=== PATIENT | male | born 1975 | race African-American/Black ===

== ENCOUNTER 2018-11-02 13:57 | Inpatient (IN) | payer OTHER ==
[2018-11-02 16:01] VITALS: BMI 28.6
--- NOTE | 2018-11-02 17:13 | HP ---
CIWA Score Nausea/Vomitin Muscle Tremors: 3 Anxiety: 3 Agitation: 3 Paroxysmal Sweats: No Perspiration Orientation: 1-Uncertain about Date Tacttile Disturbances: 2-Mild Itch/Numbness/Burn Auditory Disturbances: 0-None Visual Disturbances: 0-None Headache: 4-Moderately Severe CIWA-Ar Total Score: 19 - Admission Criteria [facility]AS[facility] Guidelines: Admission for Medically Managed Detox: Requires at least one of the followin. CIWA greater than 12 2. Seizures within the past 24 hours 3. Delirium tremens within the past 24 hours 4. Hallucinations within the past 24 hours 5. Acute intervention needed for co occurring medical disorder 6. Acute intervention needed for co occurring psychiatric disorder 7. Severe withdrawal that cannot be handled at a lower level of care (continued vomiting, continued diarrhea, abnormal vital signs) requiring intravenous medication and/or fluids 8. [facility] Chief Complaint: seeking help for alcohol use Allergies/Adverse Reactions: Allergies Allergy/AdvReac Type Severity Reaction Status Date / Time No Known Allergies Allergy Verified 11/02/18 15:44 History of Present Illness: 43 y/o/m here for alcohol use. He states he was seen in an ER in [place] yesterday for alcohol intoxication after his roommate called EMS for him. He was not admitted to the hospital and was referred here for detox. He states he has been drinking a liter of liquor everyday. He starts drinking early in the mornings and if he does not drink in the morning he starts to shake. He denies any history of seizures but states he has had DTs before but does not recall when. He was last in a detox facility in 2018 but was not able to stay sober once he left the facility. He smokes a pack a day of cigarettes for 25 years. PMHx of HTN, HLD and Depression. He was taking Zoloft for depression but he has not taken any medication in the last 2 weeks. Denies any surgical history. He is currently living with two roommates and is unemployed. He denies using any other illicit substances. - Ebola screening Have you traveled outside of the country in the last 21 days: No Have you had contact with anyone from an Ebola affected area: No Do you have a fever: No - Review of Systems Constitutional: Chills, Fever, Loss of Appetite Respiratory: reports: Cough (x2 weeks, productive, yellow/mucous mucous), Shortness of Breath (x2 weeks) Cardiac: denies: Chest Pain GI: reports: Diarrhea, Nausea, Vomiting Musculoskeletal: reports: No Symptoms Reported Integumentary: reports: No Symptoms Reported Neuro: reports: Headache, Dizziness Psychiatric: reports: Agitated, Anxious, Depressed Patient History - Patient Medical History Hx Anemia: No Hx Asthma: No Hx Chronic Obstructive Pulmonary Disease (COPD): No Hx Cancer: No Hx Cardiac Disorders: No Hx Congestive Heart Failure: No Hx Hypertension: Yes (no meds currently) Hx Hypercholesterolemia: Yes (no meds currently) Hx Pacemaker: No HX Cerebrovascular Accident: No Hx Seizures: No Hx Dementia: No Hx Diabetes: No Hx Gastrointestinal Disorders: No Hx Liver Disease: No Hx Genitourinary Disorders: No Hx Sexually Transmitted Disorders: No Hx Renal Disease (ESRD): No Hx Thyroid Disease: No Hx Human Immunodeficiency Virus (HIV): No (neg. mar 2014) Hx Hepatitis C: No Hx Depression: No Hx Suicide Attempt: No Hx Bipolar Disorder: No Hx Schizophrenia: No - Patient Surgical History Past Surgical History: No Hx Neurologic Surgery: No Hx Cataract Extraction: No Hx Cardiac Surgery: No Hx Lung Surgery: No Hx Breast Surgery: No Hx Breast Biopsy: No Hx Abdominal Surgery: No Hx Appendectomy: No Hx Cholecystectomy: No Hx Genitourinary Surgery: No Hx Section: No Hx Orthopedic Surgery: No Hx Hysterectomy: No Anesthesia Reaction: No - PPD History Previous Implant?: Yes Documented Results: Positive w/proof Results: CXR copy inchrt - Smoking Cessation Smoking history: Current every day smoker Have you smoked in the past 12 months: Yes Aproximately how many cigarettes per day: 10 If you are a former smoker, when did you quit?: SEPTEMBER 2012 Cigars Per Day: 0 Hx Chewing Tobacco Use: No Initiated information on smoking cessation: Yes 'Breaking Loose' booklet given: 11/02/18 - Substance & Tx. History Hx Alcohol Use: Yes Hx Substance Use: Yes Substance Use Type: Alcohol - Substances abused Alcohol Substance route: Oral Frequency: Daily Amount used: 1 liter Age of first use: 18 Date of last use: 11/01/18 Family Disease History - Family Disease History Family Disease History: Heart Disease: Mother (HTN;,alcohol), Other: Father (alcohol), Mother Admission Physical Exam BHS - Vital Signs Vital Signs: Vital Signs - 24 hr 11/02/18 15:42 Temperature 98.0 F Pulse Rate 83 Respiratory 17 Rate Blood Pressure 197/112 H - Physical General Appearance: Yes: Mild Distress, Tremorous HEENTM: Yes: EOMI, Normocephalic, MIRIAM Respiratory: Yes: Chest Non-Tender, Normal Breath Sounds, No Accessory Muscle Use Neck: Yes: Supple Cardiology: Yes: Regular Rhythm, Regular Rate, S1, S2 Abdominal: Yes: Normal Bowel Sounds, Non Tender, Soft. 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 NML intact, Alert, Motor Strength 5/5 Integumentary: Yes: Dry - Diagnostic (1) Alcohol use disorder Current Visit: Yes Status: Acute (2) Hyperlipemia Current Visit: Yes Status: Acute (3) Essential hypertension Current Visit: No Status: Acute (4) Alcohol dependence with uncomplicated withdrawal Current Visit: No Status: Chronic (5) Nicotine dependence Current Visit: No Status: Chronic Cleared for Admission [facility] - Detox or Rehab [facility] Level of Care: Medically Managed Detox Regimen/Protocol: Librium Breathalyzer - Breathalyzer Breathalyzer: 0.045 Urine Drug Screen - Test Device Lot number: [id number] Expiration date: 08/24/20 - Control Is test valid?: Yes - Results Drug screen NEGATIVE: Yes Inpatient Rehab Admission - Rehab Decision to Admit Inpatient rehab admission?: No
[2018-11-02] MEDS ORDERED: MAGNESIUM HYDROX 2400MG/30ML ORAL SUSPENSION 30 ML CUP PO PRN (17:39)
[2018-11-02] MEDS ORDERED: MENTHOL/PHENOL 1 EACH UD MM PRN (17:39)
[2018-11-02] MEDS ORDERED: hydrOXYzine HCL 25 MG TABLET (FP) PO PRN ×2 (17:39→18:27)
[2018-11-02] MEDS ORDERED: IBUPROFEN 400 MG TABLET (FP) PO PRN (17:39)
[2018-11-02] MEDS ORDERED: MAG HYDROX/AL HYDROX/SIMETH 30 ML UNIT-DOSE CUP PO PRN (17:39)
[2018-11-02] MEDS ORDERED: ACETAMINOPHEN 325 MG TABLET (FP) PO PRN (17:39)
[2018-11-02] MEDS ORDERED: MAGNESIUM CITRATE 300 ML BOTTLE PO PRN (17:39)
[2018-11-02] MEDS ORDERED: BISMUTH SUBSALICYLATE 524 MG/30 ML UD PO PRN (17:39)
[2018-11-02] MEDS ORDERED: chlordiazePOXIDE HCL 25 MG CAPSULE PO PRN (17:39)
[2018-11-02] MEDS ORDERED: NICOTINE POLACRILEX 2 MG GUM BUC PRN (17:39)
[2018-11-02] MEDS: METHOCARBAMOL 500 MG TABLET PO PRN (18:32)
--- NOTE | 2018-11-02 18:36 | PN ---
Teaching Attending Note Name of Resident: Shelbie Aguila ATTENDING PHYSICIAN STATEMENT I saw and evaluated the patient. I reviewed the resident's note and discussed the case with the resident. I agree with the resident's findings and plan as documented. SUBJECTIVE: pt here for detox from alcohol. Pt has a CIWA score of 19. Pt has h/ o high BP, high cholesterol. Pt does not remember meds- pharmacy called but no response. OBJECTIVE: Vital Signs - 24 hr 11/02/18 11/02/18 15:42 18:18 Temperature 98.0 F 99 F Pulse Rate 83 84 Respiratory 17 18 Rate Blood Pressure 197/112 H 175/109 H pt is tremulous voimiting ASSESSMENT AND PLAN: Pt with alcohol withdrawal Sx- high CIWA, expedite admission to floor. clonidine prn for high BP- recheck after librium dosing
[2018-11-02] MEDS: cloNIDine HCL 0.1 MG TABLET PO PRN ×2 (18:44→22:29)
[2018-11-02] MEDS: THIAMINE HCL 100 MG TABLET (FP) PO SCH (22:29)
[2018-11-02] MEDS: chlordiazePOXIDE HCL 25 MG CAPSULE PO SCH (22:29)
[2018-11-02] MEDS: MELATONIN 5 MG TABLETS PO PRN (22:29)
[2018-11-03] MEDS: chlordiazePOXIDE HCL 25 MG CAPSULE PO SCH ×4 (06:03→22:59)
[2018-11-03 10:08] LABS: HEMATOCRIT 36.3 % (35.4-49); HEMOGLOBIN 12.3 GM/dL (11.7-16.9); MCH 29.4 pg (25.7-33.7); MCHC 33.8 g/dl (32.0-35.9); MEAN CELL VOLUME 87.1 fl (80-96); MEAN PLT VOLUME 8.2 fl (7.5-11.1); PLATELET COUNT 139 K/MM3 (134-434); RBC 4.16 M/mm3 (4.00-5.60); RDW 14.7 % (11.9-15.9); WHITE BLOOD COUNT 2.3 K/mm3 (4.0-10.0)
[2018-11-03 10:23] LABS: ALBUMIN 3.5 g/dl (3.4-5.0); BILIRUBIN,TOTAL 1.8 mg/dL (0.2-1); BLOOD UREA NITROGEN 9.2 mg/dL (7-18); CALCIUM 9.4 mg/dL (8.5-10.1); POTASSIUM 3.1 mmol/L (3.5-5.1); TOT PROT 6.3 g/dl (6.4-8.2)
[2018-11-03] MEDS: PRENATAL VITAMINS W/ FOLIC ACID TABLET (FP) PO SCH (10:36)
--- NOTE | 2018-11-03 10:55 | PN ---
S CIWA - CIWA Score Nausea/Vomitin-No Nausea/No Vomiting Muscle Tremors: 3 Anxiety: 3 Agitation: 3 Paroxysmal Sweats: 3 Orientation: 0-Oriented Tacttile Disturbances: 0-None Auditory Disturbances: 0-None Visual Disturbances: 0-None Headache: 0-None Present CIWA-Ar Total Score: 12 BHS Progress Note (SOAP) Subjective: sweats shakes interrupted sleep body aches nausea irritable Objective: 11/03/18 10:53 Vital Signs Temperature 97.7 F 11/03/18 09:27 Pulse Rate 75 11/03/18 09:27 Respiratory Rate 18 11/03/18 09:27 Blood Pressure 127/79 11/03/18 09:27 O2 Sat by Pulse Oximetry (%) Laboratory Tests 11/03/18 11/03/18 07:50 07:50 WBC 2.3 L RBC 4.16 Hgb 12.3 Hct 36.3 MCV 87.1 MCH 29.4 MCHC 33.8 RDW 14.7 D Plt Count 139 D MPV 8.2 Sodium 140 Potassium 3.1 L Chloride 99 Carbon Dioxide 31 Anion Gap 10 BUN 9.2 Creatinine 1.0 Est GFR (CKD-EPI)AfAm 105.62 Est GFR (CKD-EPI)NonAf 91.13 Random Glucose 184 H Calcium 9.4 Total Bilirubin 1.8 H AST 71 H ALT 52 Alkaline Phosphatase 132 H Total Protein 6.3 L Albumin 3.5 labs noted hypokalemia 3.1. [id number] [id number] days ordered aaox3 lying in bed no acute distress Assessment: 11/03/18 10:55 withdrawal sx Plan: continue detox increase fluids k-dur ordered repeat labs for thursday.
[2018-11-03] MEDS: POTASSIUM CHLORIDE TABS 20 MEQ TABLET.ER (FP) PO SCH (11:40)
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
[2018-11-03] MEDS: ACETAMINOPHEN 325 MG TABLET (FP) PO PRN (20:09)
[2018-11-03] MEDS: METHOCARBAMOL 500 MG TABLET PO PRN (20:10)
[2018-11-03] MEDS: THIAMINE HCL 100 MG TABLET (FP) PO SCH (22:30)
[2018-11-03] MEDS: cloNIDine HCL 0.1 MG TABLET PO PRN (22:30)
[2018-11-03] MEDS: QUEtiapine FUMARATE 100 MG TABLET (FP) PO SCH (22:30)
[2018-11-03] MEDS: MELATONIN 5 MG TABLETS PO PRN (22:30)
[2018-11-04] MEDS: ACETAMINOPHEN 325 MG TABLET (FP) PO PRN ×2 (03:47→10:35)
[2018-11-04] MEDS: chlordiazePOXIDE HCL 25 MG CAPSULE PO SCH ×4 (06:10→22:50)
[2018-11-04] MEDS: PRENATAL VITAMINS W/ FOLIC ACID TABLET (FP) PO SCH (10:34)
[2018-11-04] MEDS: POTASSIUM CHLORIDE TABS 20 MEQ TABLET.ER (FP) PO SCH (10:34)
--- NOTE | 2018-11-04 11:21 | PN ---
S CIWA - CIWA Score Nausea/Vomitin Muscle Tremors: 2 Anxiety: 2 Agitation: 2 Paroxysmal Sweats: No Perspiration Orientation: 0-Oriented Tacttile Disturbances: 1-Very Mild Itch/Numbness Auditory Disturbances: 1-Very Mild Visual Disturbances: 0-None Headache: 2-Mild CIWA-Ar Total Score: 12 BHS Progress Note (SOAP) Subjective: alert,irritable,anxious,interrupted sleep,tremor Objective: 11/04/18 11:18 Vital Signs Temperature 97.9 F 11/04/18 09:39 Pulse Rate 88 11/04/18 09:39 Respiratory Rate 18 11/04/18 09:39 Blood Pressure 118/76 11/04/18 09:39 O2 Sat by Pulse Oximetry (%) Laboratory Last Values WBC 2.3 K/mm3 (4.0-10.0) L 11/03/18 07:50 RBC 4.16 M/mm3 (4.00-5.60) 11/03/18 07:50 Hgb 12.3 GM/dL (11.7-16.9) 11/03/18 07:50 Hct 36.3 % (35.4-49) 11/03/18 07:50 MCV 87.1 fl (80-96) 11/03/18 07:50 MCH 29.4 pg (25.7-33.7) 11/03/18 07:50 MCHC 33.8 g/dl (32.0-35.9) 11/03/18 07:50 RDW 14.7 % (11.9-15.9) D 11/03/18 07:50 Plt Count 139 K/MM3 (134-434) D 11/03/18 07:50 MPV 8.2 fl (7.5-11.1) 11/03/18 07:50 Sodium 140 mmol/L (136-145) 11/03/18 07:50 Potassium 3.1 mmol/L (3.5-5.1) L 11/03/18 07:50 Chloride 99 mmol/L (98-107) 11/03/18 07:50 Carbon Dioxide 31 mmol/L (21-32) 11/03/18 07:50 Anion Gap 10 MMOL/L (8-16) 11/03/18 07:50 BUN 9.2 mg/dL (7-18) 11/03/18 07:50 Creatinine 1.0 mg/dL (0.55-1.3) 11/03/18 07:50 Est GFR (CKD-EPI)AfAm 105.62 11/03/18 07:50 Est GFR (CKD-EPI)NonAf 91.13 11/03/18 07:50 Random Glucose 184 mg/dL (74-106) H 11/03/18 07:50 Calcium 9.4 mg/dL (8.5-10.1) 11/03/18 07:50 Total Bilirubin 1.8 mg/dL (0.2-1) H 11/03/18 07:50 AST 71 U/L (15-37) H 11/03/18 07:50 ALT 52 U/L (13-61) 11/03/18 07:50 Alkaline Phosphatase 132 U/L (45-117) H 11/03/18 07:50 Total Protein 6.3 g/dl (6.4-8.2) L 11/03/18 07:50 Albumin 3.5 g/dl (3.4-5.0) 11/03/18 07:50 RPR Titer Nonreactive (NONREACTIVE) 11/03/18 07:50 Assessment: 11/04/18 11:21 withdrawal symptom Plan: continue detox,on k replacement,initial glucose 184,k 3.1,wbc 2,300, repeat cbc,cmp,fasting glucose in am
[2018-11-04] MEDS: cloNIDine HCL 0.1 MG TABLET PO PRN (18:12)
[2018-11-04] MEDS: QUEtiapine FUMARATE 100 MG TABLET (FP) PO SCH (22:50)
[2018-11-04] MEDS: THIAMINE HCL 100 MG TABLET (FP) PO SCH (22:50)
[2018-11-05] MEDS ORDERED: chlordiazePOXIDE HCL 10 MG CAPSULE PO PRN
[2018-11-05] MEDS: chlordiazePOXIDE HCL 10 MG CAPSULE PO SCH ×4 (05:47→22:14)
[2018-11-05] MEDS: PRENATAL VITAMINS W/ FOLIC ACID TABLET (FP) PO SCH (10:11)
[2018-11-05] MEDS: POTASSIUM CHLORIDE TABS 20 MEQ TABLET.ER (FP) PO SCH (10:11)
--- NOTE | 2018-11-05 11:35 | PN ---
[facility] CIWA - CIWA Score Nausea/Vomitin-Mild Nausea/No Vomiting Muscle Tremors: 1-None Visible, but [place] Anxiety: 2 Agitation: 2 Paroxysmal Sweats: No Perspiration Orientation: 0-Oriented Tacttile Disturbances: 1-Very Mild Itch/Numbness Auditory Disturbances: 1-Very Mild Visual Disturbances: 0-None Headache: 1-Very Mild CIWA-Ar Total Score: 9 S Progress Note (SOAP) Subjective: alert,irritable,anxious,interrupted sleep,refused blood cbc,fasting glucose,cmp this am Objective: 11/05/18 11:32 Vital Signs Temperature 97.7 F 11/05/18 09:47 Pulse Rate 85 11/05/18 09:47 Respiratory Rate 18 11/05/18 09:47 Blood Pressure 146/98 11/05/18 09:47 O2 Sat by Pulse Oximetry (%) Assessment: 11/05/18 11:32 withdrawal symptom Plan: continue detox librium regimen,patient agree to have cbc,cmp done,had family history of dm,seen by superintendent communications , ncs,fasting glucose in am,advise diet modification,follow up with medical provider after discharge
[2018-11-05 15:22] LABS: BASO % 0.6 % (0-2.0); EOS % 3.2 % (0-4.5); HEMATOCRIT 39.4 % (35.4-49); HEMOGLOBIN 13.2 GM/dL (11.7-16.9); LYMPH % 38.7 % (8-40); MCH 29.6 pg (25.7-33.7); MCHC 33.6 g/dl (32.0-35.9); MEAN CELL VOLUME 88.1 fl (80-96); MEAN PLT VOLUME 9.1 fl (7.5-11.1); MONO % 3.9 % (3.8-10.2); NEUT % 53.6 % (42.8-82.8); PLATELET COUNT 117 K/MM3 (134-434); RBC 4.47 M/mm3 (4.00-5.60); RDW 14.8 % (11.9-15.9); WHITE BLOOD COUNT 3.4 K/mm3 (4.0-10.0)
[2018-11-05 15:36] LABS: ALBUMIN 3.9 g/dl (3.4-5.0); BILIRUBIN,TOTAL 0.6 mg/dL (0.2-1); CALCIUM 9.3 mg/dL (8.5-10.1); CREATININE 0.8 mg/dL (0.55-1.3); POTASSIUM 4.1 mmol/L (3.5-5.1); TOT PROT 7.1 g/dl (6.4-8.2)
[2018-11-05] MEDS ORDERED: cloNIDine HCL 0.1 MG TABLET PO PRN (19:34)
[2018-11-05] MEDS: THIAMINE HCL 100 MG TABLET (FP) PO SCH (22:14)
[2018-11-05] MEDS: MELATONIN 5 MG TABLETS PO PRN (22:14)
[2018-11-05] MEDS: QUEtiapine FUMARATE 100 MG TABLET (FP) PO SCH (22:14)
[2018-11-06] MEDS ORDERED: chlordiazePOXIDE HCL 10 MG CAPSULE PO SCH (05:00)
[2018-11-06 09:19] VITALS: BP 154/102; PULSE 118; TEMP 98.5
[2018-11-06] MEDS: POTASSIUM CHLORIDE TABS 20 MEQ TABLET.ER (FP) PO SCH (09:26)
[2018-11-06] MEDS: PRENATAL VITAMINS W/ FOLIC ACID TABLET (FP) PO SCH (09:26)
--- NOTE | 2018-11-06 13:19 | DS ---
[facility] Detox Discharge Summary Admission Date: 11/02/18 Discharge Date: 11/06/18 - History Present History: Alcohol Dependence Additional Comments: Pt is medically cleared and is discharged today. Pt has completed his detox protocol. Pt is encouraged to follow-up with an outpatient CD program and also to follow-up with his PMD. Before discharged pt's cbg was 217mg/dl, pt is instructed to see his pmd concerning the cbg reading. Pt verbalized understanding. Pt is alert and oriented x3, in no respiratory distress. Pertinent Past History: history of HTN and alcohol use disorder. - Physical Exam Results Vital Signs: Vital Signs Temperature 98.5 F 11/06/18 09:18 Pulse Rate 118 H 11/06/18 09:18 Respiratory Rate 20 11/06/18 09:18 Blood Pressure 154/102 H 11/06/18 09:18 O2 Sat by Pulse Oximetry (%) Vital Signs 11/06/18 11/06/18 06:00 09:18 Temperature 97.7 F 98.5 F Pulse Rate 71 118 H Respiratory 18 20 Rate Blood Pressure 143/96 154/102 H Lab Results WBC 3.4 K/mm3 (4.0-10.0) L 11/05/18 11:45 RBC 4.47 M/mm3 (4.00-5.60) 11/05/18 11:45 Hgb 13.2 GM/dL (11.7-16.9) 11/05/18 11:45 Hct 39.4 % (35.4-49) 11/05/18 11:45 MCV 88.1 fl (80-96) 11/05/18 11:45 MCHC 33.6 g/dl (32.0-35.9) 11/05/18 11:45 RDW 14.8 % (11.9-15.9) 11/05/18 11:45 Plt Count 117 K/MM3 (134-434) L 11/05/18 11:45 Sodium 141 mmol/L (136-145) 11/05/18 11:45 Potassium 4.1 mmol/L (3.5-5.1) 11/05/18 11:45 Chloride 105 mmol/L (98-107) 11/05/18 11:45 Carbon Dioxide 29 mmol/L (21-32) 11/05/18 11:45 Anion Gap 7 MMOL/L (8-16) L 11/05/18 11:45 BUN 10.0 mg/dL (7-18) 11/05/18 11:45 Creatinine 0.8 mg/dL (0.55-1.3) 11/05/18 11:45 Random Glucose 166 mg/dL (74-106) H 11/05/18 11:45 Calcium 9.3 mg/dL (8.5-10.1) 11/05/18 11:45 Labs noted. Pertinent Admission Physical Exam Findings: withdrawal symptoms. - Treatment Hospital Course: Detox Protocol Followed, Detoxed Safely, Responded well, Discharged Condition Good - Medication Discharge Medications: Ambulatory Orders Unobtainable 11/02/18 - Diagnosis (1) Alcohol dependence with uncomplicated withdrawal Status: Acute (2) Essential hypertension Status: Chronic (3) Hyperlipemia Status: Chronic (4) Nicotine dependence Status: Chronic (5) Syncope Status: Chronic - AMA Did Patient Leave Against Medical Advice: No
[2018-11-07] MEDS ORDERED: chlordiazePOXIDE HCL 10 MG CAPSULE PO ONE (05:00)
== END 2018-11-06 11:10 | disposition home or self-care (01) | DRG 775 ==
LOC: YASAS 13:57 → Y6N 17:42
PROVIDERS: ADMIT Surgery; ATTEND Surgery
PROC: HZ2ZZZZ Detoxification Services for Substance Abuse Treatment (ICD-10-PCS; principal; 2018-11-02)
DX: F10.230 Alcohol dependence with withdrawal, uncomplicated (principal); F17.210 Nicotine dependence, cigarettes, uncomplicated; F10.24 Alcohol dependence with alcohol-induced mood disorder; F10.282 Alcohol dependence with alcohol-induced sleep disorder; F33.9 Major depressive disorder, recurrent, unspecified; F43.10 Post-traumatic stress disorder, unspecified; E87.6 Hypokalemia; E78.5 Hyperlipidemia, unspecified; I10 Essential (primary) hypertension; R76.11 Nonspecific reaction to tuberculin skin test without active tuberculosis
CPT/HCPCS: 36415; 71046-TC-FY; 80053; 82962; 85025; 85027; 86593; J0735

== ENCOUNTER 2024-12-07 08:40 | Inpatient (IN) | payer OTHER ==
[2024-12-07 09:26] VITALS: BMI 26.7
[2024-12-07] MEDS ORDERED: BISMUTH SUBSALICYLATE 524 MG/30 ML PO PRN (09:51)
[2024-12-07] MEDS ORDERED: hydrOXYzine PAMOATE 25 MG CAPSULE (FP) PO PRN (09:51)
[2024-12-07] MEDS ORDERED: IBUPROFEN 600 MG TABLET (FP) PO PRN (09:51)
[2024-12-07] MEDS ORDERED: guaiFENesin 600 MG TABLET.ER (FP) PO PRN (09:51)
[2024-12-07] MEDS ORDERED: DICYCLOMINE HCL 10 MG CAPSULE PO PRN (09:51)
[2024-12-07] MEDS ORDERED: BENZONATATE 200 MG CAPSULE PO PRN (09:51)
[2024-12-07] MEDS ORDERED: ONDANSETRON *ODT* 4 MG TABLET SL PRN (09:51)
[2024-12-07] MEDS ORDERED: MAG HYDROX/AL HYDROX/SIMETH 30 ML UNIT-DOSE CUP PO PRN (09:51)
[2024-12-07] MEDS ORDERED: ACETAMINOPHEN 325 MG TABLET (FP) PO PRN (09:51)
[2024-12-07] MEDS ORDERED: LOPERAMIDE HCL 2 MG CAPSULE PO PRN (09:51)
[2024-12-07] MEDS ORDERED: NALOXONE (NARCAN) HCL 4 MG/0.1 ML SPRAY NS PRN (09:51)
[2024-12-07] MEDS ORDERED: BENZOCAINE/MENTHOL (CHLORASEPTIC ) LOZENGE MM PRN (09:51)
[2024-12-07] MEDS ORDERED: POLYETHYLENE GLYCOL (HEALTHYLAX) 3350 17 GM PACKET PO PRN (09:51)
[2024-12-07] MEDS ORDERED: NICOTINE POLACRILEX 2 MG GUM BUC PRN (09:51)
[2024-12-07] MEDS ORDERED: MAGNESIUM HYDROX 2400MG/30ML ORAL SUSPENSION 30 ML CUP PO PRN (09:51)
[2024-12-07] MEDS ORDERED: IBUPROFEN 400 MG TABLET (FP) PO PRN (09:51)
[2024-12-07] MEDS ORDERED: PRENATAL VITAMINS W/ FOLIC ACID TABLET (FP) PO ONE (12:19)
[2024-12-07] MEDS: PRENATAL VITAMINS W/ FOLIC ACID TABLET (FP) PO SCH (12:22)
[2024-12-07] MEDS: NALTREXONE HCL 50 MG TABLET PO ONE (12:24)
[2024-12-07] MEDS: NICOTINE 7 MG/24 HOURS TOPICAL PATCH TD SCH (12:25)
[2024-12-07] MEDS: NIFEdipine E.R 60 MG TABLET PO SCH (17:26)
[2024-12-07] MEDS: MELATONIN 5 MG TABLETS PO SCH (22:06)
[2024-12-07] MEDS: THIAMINE 100 MG TABLET PO SCH (22:06)
[2024-12-08] MEDS: GEMFIBROZIL 600 MG TABLET (FP) PO SCH (06:14)
[2024-12-08] MEDS: NALTREXONE HCL 50 MG TABLET PO SCH (10:32)
[2024-12-08 10:37] LABS: MCHC 33.7 g/dl (32.3-36.5); MEAN CELL VOLUME 90.7 fl (79.0-92.2); MEAN PLT VOLUME 10.3 fl (9.4-12.4); RDW 12.6 % (12.1-15.9)
[2024-12-08 10:56] LABS: GLUCOSE,RANDOM 90.0 mg/dL (74-106); TOT PROT 7.3 g/dl (6.4-8.2)
[2024-12-08 10:58] LABS: CO2 28.0 mmol/L (21-32)
[2024-12-08 10:59] LABS: ALK PHOS 105.0 U/L (40-150)
[2024-12-08 11:02] LABS: CREATININE 0.78 mg/dL (0.55-1.3); SGOT/AST 28.0 U/L (5-34); SGPT/ALT 18.0 U/L (0-55)
[2024-12-09] MEDS: METHOCARBAMOL 500 MG TABLET PO PRN (22:12)
[2024-12-10 10:28] LABS: HIV INTERPRETATION NEGATIVE (NEGATIVE)
[2024-12-12 09:05] VITALS: BP 107/71; PULSE 76; RESP 18; TEMP 96.7
== END 2024-12-12 09:54 | disposition home or self-care (01) | DRG 774 ==
LOC: YASAS 08:40 → Y3N 12:05
PROVIDERS: ADMIT Allergy & Immunology; ATTEND Allergy & Immunology
PROC: HZ2ZZZZ Detoxification Services for Substance Abuse Treatment (ICD-10-PCS; principal; 2024-12-07)
DX: F10.230 Alcohol dependence with withdrawal, uncomplicated (principal); F14.20 Cocaine dependence, uncomplicated; F10.282 Alcohol dependence with alcohol-induced sleep disorder; F10.24 Alcohol dependence with alcohol-induced mood disorder; F43.10 Post-traumatic stress disorder, unspecified; F32.9 Major depressive disorder, single episode, unspecified; F41.9 Anxiety disorder, unspecified; E78.00 Pure hypercholesterolemia, unspecified; F17.210 Nicotine dependence, cigarettes, uncomplicated
CPT/HCPCS: 36415; 71046-TC-FY; 80053; 80307; 85027; 86780; 87389; 93005; 93010